=== PATIENT | female | born 1970 | race Caucasian/White ===

== ENCOUNTER 2018-08-04 08:01 | Outpatient (CLI) | payer OTHER | END 2018-08-04 08:16 | disposition home or self-care (01) | LOC: SONOGRAMA 08:01 | DX: N60.11 Diffuse cystic mastopathy of right breast (principal); N60.12 Diffuse cystic mastopathy of left breast ==

== ENCOUNTER 2023-02-20 10:40 | Outpatient (CLI) | payer OTHER | END 2023-02-20 10:44 | disposition home or self-care (01) | LOC: SONOGRAMA 10:40 | PROVIDERS: ATTEND Pathology Anatomic Pathology | DX: D24.1 Benign neoplasm of right breast (principal) ==